=== PATIENT | male | born 1980 | race Two or more races ===

== ENCOUNTER 2020-11-15 07:36 | Emergency (ER) | payer OTHER ==
[~2020-11-15] VITALS: Ht 182.9 cm; Wt 117.9 kg
[2020-11-15 07:37] VITALS: BP 161/93
[2020-11-15] MEDS ORDERED: IBUPROFEN 800 MG TAB PO ONE (09:15)
== END 2020-11-15 09:42 | disposition home or self-care (01) ==
LOC: ER 07:36
DX: S16.1XXA Strain of muscle, fascia and tendon at neck level, initial encounter (principal); S39.012A Strain of muscle, fascia and tendon of lower back, initial encounter; M47.896 Other spondylosis, lumbar region; V43.52XA Car driver injured in collision with other type car in traffic accident, initial encounter; Y93.89 Activity, other specified; Y92.410 Unspecified street and highway as the place of occurrence of the external cause; Y99.8 Other external cause status
CPT/HCPCS: 72040; 72100

== ENCOUNTER 2021-07-09 16:13 | Emergency (ER) | payer SELFPAY ==
[~2021-07-09] VITALS: Ht 182.9 cm; Wt 122.5 kg
[2021-07-09] MEDS ORDERED: KETOROLAC TROMETH 60MG/2ML VIAL IM ONE (16:45)
[2021-07-09] MEDS ORDERED: ONDANSETRON ODT 4 MG TAB PO ONE (16:45)
[2021-07-09 16:55] LABS: Basophils # (auto) 0 10 ^3/uL (0-0.2); Basophils % (auto) 0.3 % (0.0-2.0); Eosinophils # (auto) 0 10 ^3/uL (0-0.8); Hematocrit 48.9 % (41.0-53.0); Hemoglobin 16.8 g/dL (13.5-17.5); Lymphocytes # (auto) 1.1 10 ^3/uL (0.4-5.4); Lymphocytes % (auto) 14.3 % (10.0-50.0); Mean Corpuscular Hemoglobin 31.5 pg (28.0-32.0); Mean Corpuscular Hgb Conc. 34.4 g/dL (32.0-36.0); Mean Corpuscular Volume 91.5 fL (80.0-100.0); Monocytes # (auto) 0.4 10 ^3/uL (0-1.3); Neutrophils % (auto) 80.4 % (37.0-80.0); Nucleated Red Blood Cells % 0.2 %; Red Blood Cells 5.34 10^6/uL (4.5-5.90); Red Cell Distribution Width 12.8 % (11.8-14.3); White Blood Cell 7.4 10^3/uL (4.4-10.8)
[2021-07-09 17:17] LABS: Albumin 3.9 g/dL (3.4-5.0); Potassium 3.6 mmol/L (3.5-5.1)
[2021-07-09 17:26] LABS: BUN/Creatinine Ratio 8.2; Bilirubin, Total 0.9 mg/dL (0.2-1.0); Total Protein 9.5 g/dL (6.4-8.2)
[2021-07-09] MEDS ORDERED: cefTRIAXone SOD 1,000 MG VL IM ONE (18:15)
[2021-07-09] MEDS ORDERED: AZITHROMYCIN 250 MG TAB PO ONE (18:15)
[2021-07-09] MEDS ORDERED: IBUP600T28 PO (18:17)
[2021-07-09] MEDS ORDERED: ONDA-144 PO (18:17)
[2021-07-09] MEDS ORDERED: AZIT250T8 PO (18:17)
[2021-07-09] MEDS ORDERED: CEFD300C2 PO (18:17)
[2021-07-09 18:57] VITALS: BP 108/64
== END 2021-07-09 19:06 | disposition home or self-care (01) ==
LOC: ER 16:13
DX: U07.1 COVID-19 (principal); J12.82 Pneumonia due to coronavirus disease 2019
CPT/HCPCS: 36415; 71045; 80053; 82728; 83615; 84484; 85025; 86141; 96372; 99284; J0696; J1885; Q0162

== ENCOUNTER 2021-07-16 14:35 | Emergency (ER) | payer MEDICAID ==
[~2021-07-16] VITALS: Ht 182.9 cm; Wt 122.5 kg
[~2021-07-16 14:35] MED LIST: CEFD300C2 PO; IBUP600T28 PO; ONDA-144 PO
[2021-07-16 17:10] VITALS: BP 123/72
== END 2021-07-16 18:30 | disposition home or self-care (01) ==
LOC: ER 14:35
DX: J18.9 Pneumonia, unspecified organism (principal); Z20.822 Contact with and (suspected) exposure to COVID-19
CPT/HCPCS: 36415; 71046; 87426